=== PATIENT | female | born 1995 | race Caucasian/White ===

== ENCOUNTER 2018-05-25 18:47 | Observation (INO) ==
[2018-05-25] MEDS ORDERED: Ketorolac Inj 30 MG/ML (IVP) Vial IV.PUSH ONE (19:21)
[2018-05-25] MEDS ORDERED: Sod Chloride 0.9% Inj 1,000 ML IV.SIG ONE (19:21)
--- NOTE | 2018-05-25 19:28 | ED ---
HPI General Chief Complaint: Fever Stated Complaint: fever/abd pain Time Seen by Provider: 05/25/18 19:04 Source: patient Mode of arrival: ambulatory Limitations: no limitations History of Present Illness HPI narrative: The patient is a 22-year-old female who presents to the emergency department via private vehicle for abdominal pain. The patient states her symptoms started last night with abdominal pain that was located in the lower aspect of the abdomen that was followed by nausea and vomiting. The patient then had 2 episodes of diarrhea which were loose, however, the diarrhea resolved. However, she continues to have lower abdominal pain. The patient went to an urgent care in [place], [place], and had an influenza screen that was negative. The patient was then referred to the emergency department and went to the [facility] emergency department where she had lab work and a CT of the abdomen and pelvis performed. The patient was advised to be admitted at that time and transferred for surgical evaluation, however, declined and left AGAINST MEDICAL ADVICE. The patient was advised to return if her symptoms worsen or progress. The patient states her temperature went up to 103, therefore, she returns to the emergency department. The patient denies any previous abdominal surgeries. The patient denies any recent upper respiratory symptoms such as nasal congestion, sore throat, or cough. MD complaint: Reports abdominal pain Onset (ago): day(s) Pain Consistency: constant Location: Reports RLQ Severity: moderate Severity scale (1-10): 6 Quality: Reports aching Radiation: Reports suprapubic Migration to: Reports suprapubic Relieving factors: nothing Exacerbating factors: other Associated symptoms: Reports nausea, vomiting and diarrhea Related Data Patient : No Previous Rx's Medication Instructions Recorded ciprofloxacin HCl [Cipro] 500 mg PO BID #14 tab 05/25/18 metronidazole [Flagyl] 500 mg PO Q8H 7 Days #21 tab 05/25/18 Allergies Allergy/AdvReac Type Severity Reaction Status Date / Time No Known Allergies Allergy Verified 05/25/18 13:20 Review of Systems ROS: all other systems reviewed are negative [facility] Medical History Medical History PCOS (polycystic ovarian syndrome) (Acute) Surgical History Surgical History No history of previous surgery (Acute) Social History Social History Substance History: No History of Abuse Second Hand Smoke Exposure: No Smoking Status: Never smoker How Often Do You Have a Drink Containing Alcohol: Monthly or less Recent Travel in [place] within the Last 8 Weeks: No Recent Out of Country Travel within the Last 8 Weeks: No Exam Narrative Exam Narrative: GENERAL: Awake, alert, pleasant 22-year-old female who appears her stated age and is in no acute respiratory distress. SKIN: Focused skin assessment warm/dry. HEAD: Atraumatic. Normocephalic. EYES: Pupils equal and round. No scleral icterus. No injection or drainage. ENT: No nasal bleeding or discharge. Mucous membranes pink and moist. No erythema or exudate noted. NECK: Trachea midline. No JVD. CARDIOVASCULAR: Regular, tachycardic with a heart rate 110. RESPIRATORY: No accessory muscle use. Clear to auscultation. Breath sounds equal bilaterally. GASTROINTESTINAL: Abdomen soft, tender to palpation right lower quadrant. No guarding or rigidity. Minimal left lower quadrant tenderness. Back: No CVA tenderness. MUSCULOSKELETAL: No obvious deformities. No clubbing. No cyanosis. No edema. NEUROLOGICAL: Awake and alert. No obvious cranial nerve deficits. Motor grossly within normal limits. Normal speech. PSYCHIATRIC: Appropriate mood and affect; insight and judgment normal. Course Initial Documented Vital Signs Temperature 101.0 F H 05/25/18 19:00 Pulse Rate 110 H 05/25/18 19:00 Respiratory Rate 18 05/25/18 19:00 Blood Pressure 120/59 L 05/25/18 19:00 Pulse Oximetry 97 05/25/18 19:00 Last Documented Vital Signs Temperature 98.9 F 05/25/18 21:25 Pulse Rate 100 H 05/25/18 21:25 Respiratory Rate 18 05/25/18 21:25 Blood Pressure 118/74 05/25/18 21:25 Pulse Oximetry 97 05/25/18 19:00 Medical Decision Making [facility] Narrative Medical decision making narrative: IV was established, labs are drawn and sent, and the patient was placed on cardiac telemetry monitoring and continuous pulse oximetry monitoring. I reviewed the patient's EMR including CT of the abdomen and pelvis that was performed earlier today. The patient had appendicoliths at that time but no significant inflammatory changes. There is no mention of mesenteric adenitis. The patient has had nausea, vomiting, and right lower quadrant abdominal pain with only 2 episodes of loose stool. I doubt significant gastroenteritis with fever and continuing right lower quadrant abdominal pain, exam is suspicious for appendicitis. I discussed the patient with the on-call general surgeon, Dr. Benson, who agrees with 23-hour observation to the medical service, n.p.o. after midnight, and CBC in the morning. We will place the patient on Zosyn. Patient will be kept n.p.o. after midnight. The on-call medical service was paged for admission. Medical Screen Exam Complete: Yes Emergency Medical Condition: Yes Differential Diagnosis Differential Diagnosis: Differential diagnosis includes appendicitis, mesenteric adenitis, gastroenteritis, Crohn's disease, ulcerative colitis, pyelonephritis, PID, ectopic . Lab Data Result diagrams: 05/25/18 19:50 05/25/18 19:50 Lab Results 05/25/18 05/25/18 Range/Units 19:50 19:50 CBC w Diff Auto diff final WBC 5.6 (4.0-11.0) th/mm3 RBC 4.41 (4.00-5.30) mil/mm3 Hgb 12.0 (11.6-15.3) gm/dL Hct 36.3 (35.0-46.0) % MCV 82.2 (80.0-100.0) fL MCH 27.3 (27.0-34.0) pg MCHC 33.2 (32.0-36.0) % RDW 13.0 (11.6-17.2) % Plt Count 247 (150-450) th/mm3 MPV 8.6 (7.0-11.0) fL Neut % (Auto) 75.5 H (16.0-70.0) % Lymph % (Auto) 13.5 (9.0-44.0) % [place] % (Auto) 10.4 H (0.0-8.0) % Eos % (Auto) 0.0 (0.0-4.0) % Baso % (Auto) 0.6 (0.0-2.0) % Neut # (Auto) 4.2 (1.8-7.7) th/mm3 Lymph # (Auto) 0.8 L (1.0-4.8) th/mm3 Wake # (Auto) 0.6 (0.0-0.9) th/mm3 Eos # (Auto) 0.0 (0.0-0.4) th/mm3 Baso # (Auto) 0.0 (0.0-0.2) th/mm3 WBC Differential . Differential Comment . Sodium 138 (136-145) meq/L Potassium 3.6 (3.5-5.1) meq/L Chloride 105 (98-107) meq/L Carbon Dioxide 26.0 (21.0-32.0) meq/L Anion Gap 7 (5-15) meq/L BUN 8 (7-18) mg/dL Creatinine 0.74 (0.50-1.00) mg/dL Estimated GFR Greater than 89 (>89) mL/min Random Glucose 99 (74-106) mg/dL Calcium 8.2 L (8.5-10.1) mg/dL Discharge Plan Discharge Disposition Patient Disposition: ED Admit(ED Internal Use Only) Discharge Condition Condition: Stable Discharge Order Discharge Orders: ED Use Only Admit Order (Routine); Ordered 05/25/18 Ordered By: Clay Stone Discharge Details Diagnosis: Abdominal pain Physicians Team ED Provider: Clay Stone Primary Care Provider: Primary Care Pily Gordillo Attending Provider: Mackenzie Light Other Providers: Sean Benson Discharge Interventions Interventions: Vital Signs Last Done: 05/25/18 21:25 ED Discharge Assessment Last Done: 05/25/18 21:25 Status ED Status: Admitted Observation Patient
[2018-05-25] MEDS ORDERED: Acetaminophen 325 MG Tablet PO PRN (19:57)
[2018-05-25] MEDS ORDERED: Bisacodyl 10 MG Supp RECTAL PRN (19:57)
[2018-05-25] MEDS ORDERED: Piperacil/Tazo 4.5 GM Premix 4.5 GM/100 ML BAG IV.SIG SCH (20:00)
[2018-05-25 20:17] LABS: Baso % (Auto) 0.6 % (0.0-2.0); Hematocrit 36.3 % (35.0-46.0); Lymph # (Auto) 0.8 th/mm3 (1.0-4.8); Lymph % (Auto) 13.5 % (9.0-44.0); Mean Corpuscular HGB Conc 33.2 % (32.0-36.0); Mean Corpuscular Hemoglobin 27.3 pg (27.0-34.0); Mean Corpuscular Volume 82.2 fL (80.0-100.0); Mean Platelet Volume 8.6 fL (7.0-11.0); Mono # (Auto) 0.6 th/mm3 (0.0-0.9); Mono % (Auto) 10.4 % (0.0-8.0); Neut # (Auto) 4.2 th/mm3 (1.8-7.7); Neut % (Auto) 75.5 % (16.0-70.0); Platelet Count 247 th/mm3 (150-450); Red Blood Count 4.41 mil/mm3 (4.00-5.30); White Blood Count 5.6 th/mm3 (4.0-11.0)
[2018-05-25 20:26] LABS: Chloride 105 meq/L (98-107); Potassium 3.6 meq/L (3.5-5.1); Sodium 138 meq/L (136-145)
[2018-05-25 20:28] LABS: Calcium 8.2 mg/dL (8.5-10.1)
[2018-05-25 20:29] LABS: Anion Gap 7 meq/L (5-15); Blood Urea Nitrogen 8 mg/dL (7-18); Glucose,Random 99 mg/dL (74-106)
[2018-05-25 20:32] LABS: Glomerular Filtration Rate Greater Than 89 mL/min (>89)
[2018-05-25] MEDS: Sod Chloride 0.9% Inj 1,000 ML IV.CONT SCH (23:56)
--- NOTE | 2018-05-26 07:28 | P.HPGS ---
History of Present Illness Service: History and physical admission NOTE FOR SURGICAL ATTENDING, DR. TAVO BENSON General Surgery Primary Care Physician: No Primary Care Physician Chief Complaint: Abdominal pain History of Present Illness: This is a 22 year old female with a past medical history of PCOS who presented to the [place] ED with complaints of abdominal pain with associated nausea and vomiting yesterday. She reports the pain has been going on for two days. She was seen in the [place] ED yesterday. A CT abdomen/pelvis was done which showed an appendicolith. It was recommended she be transferred to [facility] for surgical evaluation but she left A. She returned back to the [place] ED when the pain did not go away and she developed a fever. A General Surgery admission has been requested. - Diagnosis (1) Acute appendicitis (2) Abnormal findings on diagnostic imaging of abdomen Review of Systems All other systems reviewed negative except as stated in HPI PMFSH - History History Provided By: Patient - Medical History Medical History: Medical History (Last Reviewed 05/26/18 @ 15:16 by Tavo Benson MD) PCOS (polycystic ovarian syndrome) - Surgical History Surgical History: Surgical History (Last Reviewed 05/26/18 @ 15:16 by Tavo Benson MD) No history of previous surgery - Social History I have reviewed the patient's Social History: Yes - Tobacco History Second Hand Smoke Exposure: No Tobacco Use In Past 30 Days: No Smoking Status: Never smoker - Alcohol History How Often Do You Have a Drink Containing Alcohol: Monthly or less - Substance Use History Substance History: No History of Abuse - Travel History Recent Travel in the [place] Within the Last 8 Weeks: No Recent Travel Out of the Country Within the Last 8 Weeks: No - Immunization History Tetanus Immunization: Unsure Medications and Allergies Allergies Allergy/AdvReac Type Severity Reaction Status Date / Time No Known Allergies Allergy Verified 05/25/18 13:20 Active Medications: Active Medications Acetaminophen (Tylenol) 650 mg PO Q4H PRN PRN Reason: Temp > 100.4 Al Hydroxide/Mg Hydroxide (Milk Of Magnesia Liq) 30 ml PO Q12H PRN PRN Reason: Mild Constipation Bisacodyl (Dulcolax Supp) 10 mg RECTAL DAILY PRN PRN Reason: SEVERE CONSITIPATION Piperacillin/Tazobactam/Dextrose (Zosyn 4.5 Gm Premix) 4.5 gm in 100 mls @ 200 mls/hr IV.SIG ONCE [facility] Last Infusion: 05/25/18 21:07 Dose: Infused Sodium Chloride (Ns Inj) 1,000 mls @ 100 mls/hr IV.CONT .Q10H [facility] Last Admin: 05/25/18 23:56 Dose: 100 mls/hr Lactulose (Lactulose Liq) 30 ml PO DAILY PRN PRN Reason: SEVERE CONSITIPATION Ondansetron HCl (Zofran Inj) 4 mg IV.PUSH Q6H PRN PRN Reason: NAUSEA OR VOMITING Sennosides (Senokot) 17.2 mg PO Q12H PRN PRN Reason: Moderate Constipation Sodium Chloride (Ns Flush) 2 ml IV.FLUSH PRN PRN PRN Reason: FLUSH AFTER USING IV ACCESS Sodium Chloride (Ns Flush) 2 ml IV.FLUSH BID [facility] Last Admin: 05/25/18 23:06 Dose: Not Given Sodium Chloride (Ns Flush) 2 ml IV.FLUSH PRN PRN PRN Reason: FLUSH AFTER USING IV ACCESS Exam Vital signs: Vital Signs 05/25/18 19:00 05/25/18 20:20 05/25/18 21:25 Temperature 101.0 F H 98.9 F Pulse Rate 110 H 109 H 100 H Respiratory Rate 18 20 18 Blood Pressure 120/59 L 122/74 118/74 Pulse Oximetry 97 05/25/18 21:30 05/25/18 21:40 05/26/18 00:00 Temperature 99.5 F 97.7 F Pulse Rate 106 H 87 Respiratory Rate 20 18 20 Blood Pressure 102/57 L 97/47 L Pulse Oximetry 97 97 05/26/18 04:00 Temperature 100.3 F H Pulse Rate 94 H Respiratory Rate 20 Blood Pressure 98/53 L Pulse Oximetry 98 Intake & Output 05/25/18 05/26/18 05/26/18 18:59 06:59 18:59 Intake Total 1160 / 1160 Balance 1160 / 1160 Weight 90.8 kg Intake: IV 1100 / 1100 Zosyn 4.5 GM Premix 4.5 gm In 100 / 100 100 ml @ 200 mls/hr IV.SIG ONCE YANCI Rx#:[id number] NS Inj 1,000 ML @ Wide Open IV. 1000 / 1000 SIG BOLUS ONE Rx#:[id number] Oral 60 / 60 Other: # Voids 2 Weight On Admission 91.8 kg Narrative: GENERAL: Very pleasant 22 year old female resting in bed in no acute distress. SKIN: Warm and dry. HEAD: Atraumatic. Normocephalic. EYES: Pupils equal and round. No scleral icterus. No injection or drainage. ENT: No nasal bleeding or discharge. Mucous membranes pink and moist. NECK: Trachea midline. CARDIOVASCULAR: Regular rate and rhythm. RESPIRATORY: No accessory muscle use. Clear to auscultation. Breath sounds equal bilaterally. GASTROINTESTINAL: Abdomen soft, nondistended. RLQ tenderness with palpation. MUSCULOSKELETAL: Extremities without clubbing, cyanosis, or edema. No obvious deformities. NEUROLOGICAL: Awake and alert. No obvious cranial nerve deficits. Motor grossly within normal limits. Five out of 5 muscle strength in the arms and legs. Normal speech. PSYCHIATRIC: Appropriate mood and affect; insight and judgment normal. Results - Labs 05/26/18 08:20 05/26/18 08:20 Laboratory Results - last 24 hr 05/25/18 05/25/18 19:50 19:50 CBC w Diff Auto diff final WBC 5.6 RBC 4.41 Hgb 12.0 Hct 36.3 MCV 82.2 MCH 27.3 MCHC 33.2 RDW 13.0 Plt Count 247 MPV 8.6 Neut % (Auto) 75.5 H Lymph % (Auto) 13.5 [place] % (Auto) 10.4 H Eos % (Auto) 0.0 Baso % (Auto) 0.6 Neut # (Auto) 4.2 Lymph # (Auto) 0.8 L [place] # (Auto) 0.6 Eos # (Auto) 0.0 Baso # (Auto) 0.0 WBC Differential . Differential Comment . Sodium 138 Potassium 3.6 Chloride 105 Carbon Dioxide 26.0 Anion Gap 7 BUN 8 Creatinine 0.74 Estimated GFR Greater than 89 Random Glucose 99 Calcium 8.2 L - Imaging CT scan - abdomen: report reviewed, image reviewed CT scan - pelvis: report reviewed, image reviewed Caprini VTE Risk Assessment Caprini VTE Risk Assessment: No/Low Risk (score <= 1) VTE Pharmacological Exception Reason: Documented (Going to OR ) Caprini Risk Assessment Model: Point Value = 1 Point Value = 2 Point Value = 3 Point Value = 5 Age 41-60 Minor surgery BMI > 25 kg/m2 Swollen legs Varicose veins or History of unexplained or recurrent spontaneous Oral contraceptives or hormone replacement Sepsis (< 1 month) Serious lung disease, including pneumonia (< 1 month) Abnormal pulmonary function Acute myocardial infarction Congestive heart failure (< 1 month) History of inflammatory bowel disease Medical patient at bed rest Age 61-74 Arthroscopic surgery Major open surgery (> 45 min) Laparoscopic surgery (> 45 min) Malignancy Confined to bed (> 72 hours) Immobilizing plaster cast Central venous access Age >= 75 History of VTE Family history of VTE Factor V Leiden Prothrombin [id number] Lupus anticoagulant Anticardiolipin antibodies Elevated serum homocysteine Heparin-induced thrombocytopenia Other congenital or acquired thrombophilia Stroke (< 1 month) Elective arthroplasty Hip, pelvis, or leg fracture Acute spinal cord injury (< 1 month) Prophylaxis Regimen: Total Risk Factor Score Risk Level Prophylaxis Regimen 0-1 Low Early ambulation 2 Moderate Order ONE of the following: *Sequential Compression Device (SCD) *Heparin 5000 units SQ BID 3-4 Higher Order ONE of the following medications: *Heparin 5000 units SQ TID *Enoxaparin/Lovenox 40 mg SQ daily (WT < 150 kg, CrCl > 30 mL/min) *Enoxaparin/Lovenox 30 mg SQ daily (WT < 150 kg, CrCl > 10-29 mL/min) *Enoxaparin/Lovenox 30 mg SQ BID (WT < 150 kg, CrCl > 30 mL/min) AND/OR *Sequential Compression Device (SCD) 5 or more Highest Order ONE of the following medications: *Heparin 5000 units SQ TID (Preferred with Epidurals) *Enoxaparin/Lovenox 40 mg SQ daily (WT < 150 kg, CrCl > 30 mL/min) *Enoxaparin/Lovenox 30 mg SQ daily (WT < 150 kg, CrCl > 10-29 mL/min) *Enoxaparin/Lovenox 30 mg SQ BID (WT < 150 kg, CrCl > 30 mL/min) AND *Sequential Compression Device (SCD) Assessment and Plan - Assessment (1) Acute appendicitis Code(s): K35.80 - Unspecified acute appendicitis Status: Acute Qualifiers: Acute appendicitis type: with localized peritonitis Appendicitis gangrene presence: without gangrene Appendicitis perforation presence: without perforation Appendicitis abscess presence: without abscess Qualified Code(s) : K35.30 - Acute appendicitis with localized peritonitis, without perforation or gangrene Plan: 22 year old female with RLQ abdominal pain; nausea/vomiting -Exam c/w acute appendicitis -Continue Zosyn -Plan for OR this afternoon with Dr. Benson -Obtain consents -Pain control -NPO -Procedure explained including risks and benefits; all questions answered (2) Abnormal findings on diagnostic imaging of abdomen Code(s): R93.5 - Abnormal findings on diagnostic imaging of other abdominal regions, including retroperitoneum Status: Acute - Attending Attestation History and physical admission NOTE FOR SURGICAL ATTENDING, DR. TAVO BENSON Patient examined exquisite tenderness right lower quadrant Reviewed imaging Plan laparoscopic appendectomy this was discussed with the patient in detail she appeared to understand I agree with above assessment and plan. The exam, history, and the medical decision-making described in the above note were completed with the assistance of the mid-level provider. I reviewed and agree with the findings presented. I attest that I had a [id number] encounter with the patient on the same day, and personally performed and documented my assessment and findings in the medical record. The following services were provided during this hospital visit: Chart data review, vital sign assessments/reviewing monitor data Review of consultations notes if present. Medication orders/review and/or management Ordering and/or reviewing lab tests Ordering and/or interpreting/reviewing x-rays and/or diagnostic studies Care of the patient and discussion of the patient with the care team Documentation time To help prompt me to consider important information that might be impacting today's encounter and assessment, Information from prior notes written by myself or my colleagues may have been "brought forward/copy and pasted" into today's note. H&P: Quality - VTE Deep Vein Thrombosis/Pulmonary Embolism Present on Admission: No
[2018-05-26] MEDS ORDERED: Morphine Inj 4 MG/ML Vial IV.PUSH PRN (08:00)
[2018-05-26] MEDS: Sod Chloride 0.9% Inj 1,000 ML IV.CONT SCH ×2 (08:19→18:50)
[2018-05-26 08:49] LABS: Baso % (Auto) 0.8 % (0.0-2.0); Eos % (Auto) 0.2 % (0.0-4.0); Hematocrit 35.1 % (35.0-46.0); Hemoglobin 11.7 gm/dL (11.6-15.3); Lymph # (Auto) 1.3 th/mm3 (1.0-4.8); Lymph % (Auto) 32.4 % (9.0-44.0); Mean Corpuscular HGB Conc 33.4 % (32.0-36.0); Mean Corpuscular Hemoglobin 28.1 pg (27.0-34.0); Mean Corpuscular Volume 84.3 fL (80.0-100.0); Mono # (Auto) 0.7 th/mm3 (0.0-0.9); Mono % (Auto) 16.8 % (0.0-8.0); Neut # (Auto) 1.9 th/mm3 (1.8-7.7); Neut % (Auto) 49.8 % (16.0-70.0); Platelet Count 209 th/mm3 (150-450); Red Blood Count 4.17 mil/mm3 (4.00-5.30); Red Cell Distribution Width 13.6 % (11.6-17.2); White Blood Count 3.9 th/mm3 (4.0-11.0)
[2018-05-26 08:51] LABS: Chloride 111 meq/L (98-107); Potassium 3.7 meq/L (3.5-5.1); Sodium 142 meq/L (136-145)
[2018-05-26 08:54] LABS: Calcium 7.5 mg/dL (8.5-10.1)
[2018-05-26 08:55] LABS: Anion Gap 7 meq/L (5-15); Blood Urea Nitrogen 8 mg/dL (7-18); Carbon Dioxide 24.2 meq/L (21.0-32.0); Glucose,Random 102 mg/dL (74-106)
[2018-05-26 08:58] LABS: Glomerular Filtration Rate Greater Than 89 mL/min (>89)
[2018-05-26] MEDS ORDERED: Chlorhexidine Gluconate 2% 1 Pack (2 Cloths) TOPICAL ONE (14:26)
[2018-05-26] MEDS ORDERED: fentaNYL Citrate Inj 250 MCG/5 ML Ampul ONE (14:27)
[2018-05-26] MEDS ORDERED: ceFAZolin 2 GM Premix Inj 2 GM/50 ML PIGGYBACK IV.SIG ONE (14:57)
[2018-05-26] MEDS ORDERED: Sodium Chlor 0.9% Inj 500 ML IV.SIG SCH (15:00)
[2018-05-26] MEDS ORDERED: Bupivacaine/Epinephrine PF Inj 0.5% 30 ML Vial ONE (15:10)
[2018-05-26] MEDS ORDERED: ceFAZolin 2 GM IV; once IV.SIG ONE (15:15)
[2018-05-26] MEDS ORDERED: Succinylcholine Inj 100 MG/5 ML Syringe IV.PUSH ONE (15:25)
--- NOTE | 2018-05-26 16:12 | P.OP ---
- Preoperative Diagnosis (1) Abdominal pain (2) Acute appendicitis (3) Abnormal findings on diagnostic imaging of abdomen (4) Right lower quadrant abdominal pain - Postoperative Diagnosis (1) Abdominal pain (2) Acute appendicitis (3) Abnormal findings on diagnostic imaging of abdomen (4) Right lower quadrant abdominal pain Date of procedure: 05/26/18 Procedure: Laparoscopic appendectomy Anesthesia: GETA Surgeon: Sean Benson MD Pathology: other (Appendix) Operation and Findings: PREOP DIAGNOSIS: Acute Abdomen Appendicitis POSTOP DIAGNOSIS: Acute Appendicitis PROCEDURE: Laparoscopic Appendectomy ANESTHESIA: Gen. SURGEON: Dr. Sean Benson M.D. INDICATIONS: Patient presented with a clinical diagnosis consistent with appendicitis plans are made for above. DESCRIPTION OF PROCEDURE: Patient was brought to the operating room placed under general anesthesia. Patient was given preoperative antibiotics and had sequential compression devices placed to the lower extremities. After prepping the and draping the abdomen with antiseptic. A 10 mm incision is made just in the supraumbilical area the veres needle was inserted and then the saline load test is performed. After insufflating the abdomen with 15 mm of pressure of CO2 a 10 mm trochars and placed in the abdomen. The camera was introduced into the 10 mm port and the other working 5mm ports are placed in the midline, one above the pubic tubercle and one in between the 2 previously placed ports. The Camera is introduced and the appendix can be seen and is obviously inflamed. The appendix is then grasped and the mesentery taken down with harmonic scalpel. Two PDS endo- ties are then placed around the base of the appendix, the appendix is amputated off the cecum and placed in the Endo Catch and pulled out through the umbilicus incision. Irrigation is used and we checked our dissections dissection site for hemostasis. The trochars were then removed the 10 mm port sites closed with a 0 Vicryl and the skin with 4-0 Vicryl. Patient returned to the recovery room in stable condition Patient's appendix was somewhat retrocecal mildly inflamed Patient has multiple cysts on both her ovaries Normal gallbladder Normal terminal ileum
[2018-05-26 22:11] VITALS: BP 102/56; PULSE 80; RESP 20; TEMP 98.5; O2SAT 96
== END 2018-05-26 21:00 | disposition home or self-care (01) ==
LOC: PHEDA 18:47 → PHED 18:47 → PH3 21:25
PROVIDERS: ADMIT Surgery; ATTEND Surgery
PROC: LAPAPPY (ICD-10-PCS; 2018-05-26 15:05)
DX: R11.2 Nausea with vomiting, unspecified; K35.80 Unspecified acute appendicitis; R50.9 Fever, unspecified; E28.2 Polycystic ovarian syndrome; R10.31 Right lower quadrant pain